=== PATIENT | female | born 1935 | race Caucasian/White ===

== ENCOUNTER 2020-01-02 08:12 | Observation (INO) ==
--- NOTE | 2019-12-27 07:46 | ANES ---
Anesthesia Pre Procedure Eval HOME MEDICATIONS amlodipine 10 mg tablet 10 mg PO DAILY tab 12/18/19 [Last Taken Unknown] aspirin 81 mg tablet,delayed release 81 mg PO DAILY 12/18/19 [Last Taken Unknown] atorvastatin 10 mg tablet 10 mg PO DAILY tab 12/18/19 [Last Taken Unknown] gabapentin 100 mg capsule 100 mg PO TID cap 12/18/19 [Last Taken Unknown] losartan 50 mg tablet 50 mg PO DAILY tab 12/18/19 [Last Taken Unknown] metoprolol succinate 50 mg tablet,extended release 24 hr mg PO DAILY tab 12/18/19 [Last Taken Unknown] Allergies/Adverse Reactions: Allergies Allergy/AdvReac Type Severity Reaction Status Date / Time Tetanus Vaccines and Toxoid Allergy Mild Rash, Verified 12/18/19 12:57 fever, paralysis - Planned Procedure Planned Procedure: Left Total Knee replacement Medication List Reviewed:: Yes Allergies Verified: Yes Medical History (Last Reviewed 12/27/19 @ 07:44 by Augustine Price CRNA) Osteoporosis (Chronic) Hypertension (Chronic) History of cervical cancer History of colon cancer Surgical History (Last Reviewed 12/27/19 @ 07:44 by Augustine Price CRNA) H/O cataract removal with insertion of prosthetic lens H/O hernia repair H/O total hysterectomy with bilateral salpingo-oophorectomy (BSO) History of colectomy Onset Date: ~2000 History of colostomy reversal Onset Date: ~2000 Family History (Last Reviewed 12/27/19 @ 07:44 by Augustine Price CRNA) Mother , age 87 Dementia Father Medical history unknown - Family Anesthesia History Family History:: no untoward family reactions to anesthesia - Airway/Neck/Teeth Teeth Condition: intact Neck Exam: limited range of motion Mallampatti Score: 3 Thyromental (T-M) distance: > 6 cm Mandibulo Hyoid distance: > 3 cm - Respiratory Respiratory Physical: lungs clear Smoking Status: Former smoker Sleep Apnea currently treated: No Sleep Apnea by current assessment: No - Cardiovascular Cardiac History: hypertension, hyperlipidemia Tolerate Activity: Fair Heart Sounds: S1 & S2, Regular - Gastrointestinal NPO since: instructed npo after mn - Anesthesia Assessment and Plan ASA Class: PS, II Anesthesia Type Plan: Spinal - adductor canal block Planned difficult intubation/equipment available: No
[~2020-01-02 08:12] MED LIST: ROPIVACAINE HCL/PF 100 MG, EPINEPHrine 0.2 MG, KETOROLAC TROMETHAMINE 30 MG in NORMAL S... IJ PRN; TRANEXAMIC ACID 1,000 MG in NORMAL SALINE 100 ML IV PRN; ceFAZolin SODIUM 1 GM VIAL IV PRN; ceFAZolin SODIUM 1 GM VIAL ONE
[2020-01-02] MEDS ORDERED: MIDAZOLAM HCL/PF 1 MG/ML VIAL ONE (08:27)
[2020-01-02] MEDS ORDERED: PROPOFOL VIAL IV ONE (08:28)
[2020-01-02] MEDS ORDERED: LIDOCAINE HCL 50 ML VIAL ONE (08:28)
[2020-01-02] MEDS ORDERED: BUPIVACAINE HCL/EPINEPHRINE 50 ML VIAL ONE (08:30)
[2020-01-02] MEDS: RINGER'S SOLUTION,LACTATED 1,000 ML IV PRN ×2 (09:10→11:35)
[2020-01-02] MEDS ORDERED: MAGNESIUM HYDROXIDE 30 ML UDC PO PRN (12:38)
[2020-01-02] MEDS ORDERED: oxyCODONE HCL/ACETAMINOPHEN 1 TAB TABLET PO PRN (12:38)
[2020-01-02] MEDS ORDERED: ONDANSETRON HCL/PF 2 MG/ML VIAL IV PRN (12:38)
[2020-01-02] MEDS ORDERED: NORMAL SALINE 1,000 ML IV PRN (12:38)
[2020-01-02] MEDS ORDERED: MORPHINE SULFATE 2 MG/ML DISP.SYRIN IV PRN (12:38)
[2020-01-02] MEDS ORDERED: ACETAMINOPHEN 500 MG TABLET PO PRN (12:38)
[2020-01-02] MEDS ORDERED: MAG HYDROX/ALUMINUM HYD/SIMETH 30 ML UDC PO PRN (12:38)
--- NOTE | 2020-01-02 12:48 | OR ---
Operative Report - Dictated Report Narrative: Date: 01/02/2020 Preoperative diagnosis: Left knee degenerative joint disease. Postoperative diagnosis: Left knee degenerative joint disease. Procedure: Left total knee arthroplasty. Surgeon: Breezy Ellington M.D. Hat Trimmer: Bam Adorno PA-C provided a set of essential, skilled, educated hands that assisted in positioning, transfer, retraction, manipulation, irrigation, closure of wounds, and placement of dressings all of which could not be provided by the available surgical crew. Anesthesia: Spinal with regional block and local periarticular joint injection. Complications: None Specimens: Bone for disposal. Estimated blood loss: Minimal. Tourniquet time: 65 minutes at 300 millimeters of mercury. Retained implants: Depuy Attune size 6 standard lugged cemented posterior stabilized femoral component. Size 5 rotating-bearing cemented tibial platform. 6 by 7 millimeter posterior stabilized cross-linked tibial insert. 38 millimeter medialized patella button. Indications: Lynda is a 84-year-old female who has been followed in my clinic for period of time with significant complaints of left knee pain consistent with arthritic changes. She has failed conservative measures including but not limited to activity modification, passage of time, medications, and other conservative measures. Patient wished to proceed with surgical treatment. The risks, benefits, and alternatives were discussed in clinic. The risks of , blood clots, bleeding, infection, nerve/tendon blood vessel/ injury, malposition of components, intraoperative fracture, postoperative limited range of motion, persistent pain, failure of components, and need for additional procedures. Patient wished to proceed consent was obtained after answering all questions. Procedure: After marking the correct extremity on the floor, the patient was taken to the operating room. A timeout was performed. IV antibiotics consisting of 1 g of Ancef were administered prior to the procedure. A regional followed by spinal anesthetic was induced by anesthesia. on the operative table with all bony prominences well-padded. Tse catheter was placed and a bump was placed under the operative side buttock. SCDs and JORDYN hose were utilized on the nonoperative leg. A well-padded tourniquet was applied to the operative thigh. The operative leg was then pre-scrubbed with alcohol prepped and draped in a standard sterile fashion. After exsanguinating the extremity with an Esmarch bandage, the tourniquet was inflated. After marking out the anterior knee for standard incision centered over the patella, the skin was incised and dissected down to the joint retinaculum. The joint retinaculum was marked out as well as the horizontal axis of the patella, and a standard medial parapatellar arthrotomy was then made. The most proximal aspect of the quadriceps tendon and the patella tendon insertion were protected from release. A partial synovectomy was performed as well as a resection of the infrapatellar fat pad. The distal femoral fat pad proximal to the trochlea was also resected using cautery. The soft tissues were elevated off the medial aspect of the proximal tibia using a Leblanc elevator ensuring that we did not transect the medial collateral ligament. Upon initial evaluation range of motion was approximately 5 degrees to 130 degrees of flexion. There were signs of advanced arthrosis in the medial and patellofemoral joint spaces. There were large marginal osteophytes which were removed with a rongeur. The knee was hyperflexed and the patella was tucked laterally. Protecting the surrounding soft tissues with Homans, an entry drill was placed down the femoral canal using Whitesides line for guidance into the entry point. The intramedullary femoral alignment ap was utilized in order to cut the distal femur in 5 of valgus resecting 10 millimeters of bone. Next the distal femur was sized to a size 6. An anterior referencing guide was utilized to place the distal femoral cutting block in 3 of external rotation. This was pinned into place. The rotation was confirmed both visually and based on anatomic landmarks. The 4 in 1 cutting jig of the appropriate size was utilized in order to make all bony cuts. Retractors were utilized in order to protect surrounding soft tissues. This cut did not result in any excessive notching. We then cut the box centered over the distal femur. This allowed for resection of the anterior and posterior cruciate ligaments. I then turned my attention to the preparation of the tibia. Using an extra medullary tibial alignment ap, 8 millimeters of bone was resected off the lateral articular surface. This was made perpendicular to the mechanical axis of the joint with the alignment ap centered over the ankle mortise. The alignment ap was parallel to the mechanical axis, centered over the medial one third of the tibial tubercle, paralleling the anterior surface of the tibia. We then turned our attention to the remaining meniscus and soft tissues. These were removed while protecting the surrounding ligaments and soft tissues. The marginal osteophytes off the anterior, posterior, medial, lateral aspects of the femur and tibia were removed. The tibia was sized out to a size 5. Next the tibia was drilled and punched in an externally rotated position as confirmed with a drop ap. Next the trial femur and a series of tibial inserts were utilized in order to allow for full extension and maximal flexion. It was found that a 7 millimeter insert gave the best range of motion and stability at multiple flexion points as well as at full extension there was less than 2 mm of gapping both medially and laterally. There was minimal anterior translation with the knee at 90 of flexion and no signs of being able to dislocate the knee. The patella was then prepared. The initial thickness was 23 millimeters. This was reamed down to 14 millimeters parallel to the anterior surface of the patella. It was sized out to a size 38 mm medialized patella button. This was then drilled and trialed. Without any medial restraint the patella tracked appropriately and did not sublux or dislocate. At this point, it was felt these were the appropriate sized implants and all trials were removed. The standard periarticular joint injection consisting of ropivacaine, Toradol, and epinephrine were injected into the periarticular joint tissues. The bony surfaces were thoroughly irrigated with a pulsatile-suction saline irrigation device. A bone plug from the prior resected anterior chamfer cut was placed into the drill hole at the distal femur. The bony surfaces were then dried in preparation for placement of the implants. The cement was vacuum mixed per the qc scientist's instructions. The cement was placed on the dry bony surfaces and posterior aspect of the implants. The implants were impacted into place, removing all extruded cement. At this point anesthesia administered tranexamic acid per protocol intravenously. The knee was placed in extension with axial loading with the trial insert while the cement cured. A dilute 0.35% betadyne-saline solution was used to irrigate the knee and allowed to sit in the knee while the cement cured. Once the cement cured, all remaining extruded cement was removed. The knee was placed through a range of motion with the trial insert to ensure appropriate range of motion and stability. Final range of motion was approximately 0 to 130 degrees. The knee was again thoroughly irrigated with pulsatile saline lavage. The final polyethylene insert was then impacted into place ensuring no retained soft tissues. The remaining griffin articular joint injection was injected. The knee was then packed with lap sponges which were soaked with dilute betadyne solution and the tourniquet was let down. Pressure was held for approximately 2 minutes and then hemostasis was obtained using electrocautery to coagulate any bleeding vessels. The knee was then placed over a triangle and the arthrotomy was closed with interrupted #1 Vicryl after thoroughly irrigating the joint. The deep and subcutaneous tissues were closed with interrupted 0 and 3-0 Vicryl respectively. Skin was closed with a running subcutaneous 3-0 Monocryl and Prineo dressing. Xeroform, 4 x 4's, ABD, Sof-Rol, and a full leg Mukul wrap were applied. All sponge, needle, blade, and instrument counts were correct prior to closing the wounds. Postoperative condition: The patient was awoken and transferred to the postanesthesia care unit in stable condition. Plan is to be admitted to the inpatient medical/surgical floor postoperatively for 24 hours of IV antibiotics, physical therapy, occupational therapy, and medical co-management. Patient will be weightbearing as tolerated with range of motion as tolerated. DVT prophylaxis will be with SCDs, JORDYN hose, and pharmacological anticoagulation. Anticipated hospital stay is approximately 2-4 days.
--- NOTE | 2020-01-02 13:10 | ANES ---
Post Anesthesia Discharge - Transfer of Care Transfer of Care handoff given to nurse: Yes - Discharge from PACU Discharge from PACU when meets criteria: Yes - Awake and comfortable.
--- NOTE | 2020-01-02 13:12 | ANES ---
Anesthesia Procedure Note Procedure Note: ANESTHESIA PROCEDURE NOTE Date of Procedure: [01/02/2020 Time of procedure: 10:30 AM. Performed by: SHAHRZAD Rome CRNA, MSN [employer] Sales Consultant: Ada Arreola RN. Preprocedure diagnosis: Post total knee arthroplasty pain. Post procedure diagnosis: Same. Procedure: Left adductor Canal Block. Indications: Post left total knee arthroplasty pain relief. Findings: See below. Details of the procedure: The patient was brought to OR #2 and placed in supine position. The patient's left femoral area to the knee was prepped with chlorhexidine and using ultrasound guidance the left femoral artery and nerve was identified and then followed to the level of the adductor canal. Lidocaine 1% was infiltrated to the skin of the intended injection site. Under ultrasound guidance the saphenous nerve was approached with visualization of a 4 inch shielded block needle. Once saphenous nerve was identified with proximity to the needle tip, the saphenous nerve was surrounded with 25 mL bupivacaine 0.5% with 1-200,000 epinephrine. Please see radiology/ultrasound report for details and retained images of the procedure. EBL: 0 Fluids: N/A. Specimen: N/A. Post procedure condition: The patient tolerated the procedure well. No complications were noted. Thank you for this consultation. Porter Jane CRNA, ARNP, MSN
--- NOTE | 2020-01-02 13:38 | ANES ---
Post Anesthesia Assessment - Vital Signs Vitals: Last Vital Signs Temp 36.9 C 01/02/20 13:30 Pulse 86 01/02/20 13:30 Resp 14 01/02/20 13:30 BP 147/68 01/02/20 13:30 Pulse Ox 94 01/02/20 13:30 Airway Patency: Normal - Mental Status Level Of Consciousness: Awake, Alert, Appropriate - Pain Level Pain Score: 0 - N/V Assessment Nausea/Vomiting Presence: None Dehydration:: No
[2020-01-02] MEDS: oxyCODONE HCL/ACETAMINOPHEN 1 TAB TABLET PO PRN (14:21)
[2020-01-02] MEDS: GABAPENTIN 100 MG CAPSULE PO SCH ×2 (14:23→16:34)
[2020-01-02] MEDS: ceFAZolin SODIUM 1 GM in DEXTROSE 5 % IN WATER 50 ML IV SCH ×4 (16:34→21:10)
[2020-01-02] MEDS ORDERED: ROSUVASTATIN CALCIUM 10 MG TABLET PO SCH (21:00)
[2020-01-02] MEDS ORDERED: SENNOSIDES/DOCUSATE SODIUM 1 TAB TABLET PO SCH (21:00)
[2020-01-03] MEDS: ceFAZolin SODIUM 1 GM in DEXTROSE 5 % IN WATER 50 ML IV SCH ×2 (03:08)
[2020-01-03] MEDS: oxyCODONE HCL/ACETAMINOPHEN 1 TAB TABLET PO PRN ×2 (03:47→09:36)
[2020-01-03 06:57] LABS: Hematocrit 34.6 % (37.0-47.0); Hemoglobin 11.2 gm/dL (12.5-16.0); Mean Cell Volume 97.7 fl (78-100); Mean Corpuscular Hemoglobin 31.6 pg (27-31); Mean Corpuscular Hgb Conc 32.4 g/dl (32-36); Mean Platelet Volume 12.3 fl (8-12.5); Platelet Count 110 K/mm3 (150-450); Red Blood Count 3.54 M/mm3 (4.2-5.4); Red Cell Distribution Width 12.3 % (11.5-14.0); White Blood Count 6.4 K/mm3 (4.0-10.5)
[2020-01-03 07:03] LABS: Anion Gap 13.2 mmol/L (6.8-13.8); BUN/Creatinine Ratio 20.6 (9.0-21.6); Calcium * 8.6 mg/dL (7.9-10.9); Carbon Dioxide 26.4 mmol/L (24-32.6); Estimated Creat Clear 53.2; Potassium 3.6 mmol/L (3.4-4.6)
[2020-01-03] MEDS ORDERED: LOSARTAN POTASSIUM 50 MG TABLET PO SCH (09:00)
[2020-01-03] MEDS ORDERED: amLODIPine BESYLATE 10 MG TABLET PO SCH (09:00)
[2020-01-03] MEDS ORDERED: METOPROLOL SUCCINATE 50 MG TABLET.SA PO SCH (09:00)
[2020-01-03] MEDS: GABAPENTIN 100 MG CAPSULE PO SCH ×2 (09:24→12:48)
[2020-01-03] MEDS ORDERED: ENOXAPARIN SODIUM 40 MG/0.4 ML SYRG SC SCH (11:39)
[2020-01-03 15:22] VITALS: BP 150/53
--- NOTE | 2020-01-03 15:26 | DS ---
(1) Status post total left knee replacement Problem: Acute Date of Discharge:: 01/03/20 Hospital Course: 84-year-old female postop day 1 status post left total knee arthroplasty. Patient was admitted postoperatively to monitor for complications, pain control, return to p.o. diet, PT/OT. Patient has met all PT goals at this time, she is return to p.o. diet without complication, her pain is well controlled. Patient is also been able to perform stairs which will be required to get into her house. Exam of left lower extremity reveals sensation tact light touch, distal capillary refill brisk, diffuse tenderness about left knee, 4+/5 flexion extension of the knee, pernio dressing in place without significant erythema or drainage. Lynda Gong is confined to her home due to status post left total knee arthroplasty. She is a need for correction care to continue monitoring postoperative dressing for any significant erythema or drainage. She will also need physical therapy as well as occupational therapy to perform postoperative range of motion strengthening as well as work towards overall goals and returning to appropriate function levels. The need for home health care and skilled services is directly related to the time spent [id number] with this person. Patient will also continue with the following recommendations: -PT/OT progress as tolerated per protocol -Assistive device PRN -P.o. diet as tolerated -P.o. pain medication PRN -DVT prophylaxis Lovenox for 10 days followed by 325 mg aspirin daily for 6 weeks -Pernio dressing in place until postop follow-up. -Follow-up in orthopedic outpatient clinic at 2 weeks postop -Disposition discharge home with home health Procedures Performed: see notes below List Procedures: Status post left total knee arthroplasty Results and Findings: Lab Pending Results 01/03/20 06:50: WBC 6.4, RBC 3.54 L, Hgb 11.2 L, Hct 34.6 L, MCV 97.7, MCH 31.6 H, MCHC 32.4, RDW 12.3, Plt Count 110 L, MPV 12.3 01/03/20 06:50: Sodium 141, Plasma Sodium 141, Potassium 3.6, Chloride 105, Carbon Dioxide 26.4, Anion Gap 13.2, BUN 14, Creatinine 0.68, Est GFR (Non-Af Amer) 88 D, BUN/Creatinine Ratio 20.6, Random Glucose 122 H, Calcium 8.6 Discharge Location: Home Disposition: Home self-[facility]it[facility] Health Agency: [facility] Home Health Condition: Good Discharge Activity: Activity as tolerated, Weight bearing - Assistive device PRN Discharge Diet: General/regular food Referrals: Breezy Ellington MD [Staff Physician] - 01/17/20 1:45 pm Alize Pickett FNP [Non Staff Physicians] - Problem Oriented Discharge Instructions to Patient/Family: Total Knee Replacement, Care After, [id number] Print Language (Ethiopian or Turkish Available): Ethiopian Additional Patient Instructions (free text): Follow up in the Orthopedic office with Dr. Ellington on WednesdayJanuary 16 at 1:45p.m. Pt will have [facility] at discharge, please call them and fax discharge information to [phone]. Prescriptions (Any new or edited meds): Enoxaparin Sodium [Lovenox] 40 mg SC Q24H #9 disp.syrin Transmission Status: Pending to [facility] #[id number] oxyCODONE HCL/ACETAMINOPHEN [Percocet 5 MG/325 MG] 1 - 2 tab PO Q4H PRN #60 tab PRN Reason: Severe Pain (Pain Scale 7-10) Transmission Status: Sent to [facility] #[id number] Complete Home Medications List: Complete Home Medication List: amlodipine 10 mg tablet 10 mg PO DAILY tab 12/18/19 aspirin 81 mg tablet,delayed release 81 mg PO DAILY 12/18/19 atorvastatin 10 mg tablet 10 mg PO DAILY tab 12/18/19 gabapentin 100 mg capsule 100 mg PO TID cap 12/18/19 losartan 50 mg tablet 50 mg PO DAILY tab 12/18/19 metoprolol succinate 50 mg tablet,extended release 24 hr 50 mg PO DAILY tab 12/18/19 Enoxaparin Sodium [Lovenox] 40 mg SC Q24H #9 disp.syrin 01/03/20 oxyCODONE HCL/ACETAMINOPHEN [Percocet 5 MG/325 MG] 1 - 2 tab PO Q4H PRN #60 tab 01/03/20
== END 2020-01-03 16:00 | disposition home health service (06) ==
LOC: SUR 08:12 → MS 08:12
PROVIDERS: ADMIT Orthopaedic Surgery; ATTEND Orthopaedic Surgery
DX: M17.12 Unilateral primary osteoarthritis, left knee
CPT/HCPCS: 36415; 73560; 80048; 85027; 97110; 97116; 97161; 97165; 97530; G0378